=== PATIENT | female | born 1980 | race Caucasian/White ===

== ENCOUNTER 2024-05-18 08:44 | Day surgery (SDC) | payer OTHER ==
[~2024-05-18] VITALS: Ht 157.5 cm; Wt 118.8 kg
[2024-05-18 09:46] LABS: HCG,QUAL RESULT NEGATIVE (NEGATIVE)
[2024-05-18] MEDS ORDERED: fentaNYL CITRATE/PF 100 MCG/2 ML AMP ONE (10:31)
[2024-05-18] MEDS ORDERED: ACETAMINOPHEN I.V. 1000 MG 100 ML IV ONE (10:31)
[2024-05-18] MEDS ORDERED: MIDAZOLAM HCL 2 MG/2 ML VIAL (VERSED) ONE (10:32)
[2024-05-18] MEDS ORDERED: NS IRRIG SOLN 1000 ML IR ONE (10:35)
[2024-05-18] MEDS ORDERED: LIDOCAINE HCL/PF 1% 10 ML AMPUL INJ ONE (10:35)
[2024-05-18] MEDS ORDERED: LR 1,000 ML IV.SOLN IV ONE (10:35)
[2024-05-18] MEDS ORDERED: PROPOFOL 200MG/ 20ML VIAL (DIPRIVAN) IV ONE (10:35)
[2024-05-18] MEDS ORDERED: ceFAZolin SODIUM 1 GM VIAL ONE (10:35)
[2024-05-18] MEDS ORDERED: ONDANSETRON HCL 4 MG/2 ML VIAL IVP PRN (10:45)
[2024-05-18] MEDS ORDERED: HYDROmorphone 1 MG/ML INJ. CARTRIDGE IVP PRN (10:45)
[2024-05-18] MEDS ORDERED: LR 1,000 ML IV ONE (10:45)
[2024-05-18] MEDS ORDERED: fentaNYL CITRATE/PF 100 MCG/2 ML AMP IVP PRN ×2 (10:45)
[2024-05-18 11:16] VITALS: O2SAT 98
[2024-05-18 14:55] VITALS: BP_SYST 156; PULSE 66; RESP 16
== END 2024-05-18 14:29 | disposition home or self-care (01) ==
LOC: SMU 08:44 → SDS 08:44
PROVIDERS: ATTEND Otolaryngology Plastic Surgery within the Head & Neck
DX: R22.0 Localized swelling, mass and lump, head (principal); D17.0 Benign lipomatous neoplasm of skin and subcutaneous tissue of head, face and neck; E66.01 Morbid (severe) obesity due to excess calories; Z68.42 Body mass index [BMI] 45.0-49.9, adult
CPT/HCPCS: 87081; 21012; 84703; 88304; J0690; J2003; J2250; J2704; J3010; J7120; J0131